=== PATIENT | female | born 1955 | race Caucasian/White ===

== ENCOUNTER → 2016-09-30 | Outpatient (CLI) | payer OTHER ==
--- NOTE | 2016-09-30 17:30 | MA ---
Screening Digital Mammogram With iCAD Analysis Clinical Indications: Routine screening. The patient has had benign left breast biopsies. Technique: Standard cephalocaudal and mediolateral oblique projections were obtained. The examination was processed by the iCAD computer-aided detection system. Comparison: July 2015, July 2014, July 2013, July 2012, June 2012, June 2011, O ctober 2009, May 2009. Breast density: Type C; Heterogeneously dense. Findings: CAD was reviewed. There is a possible developing nodular asymmetry noted in the upper poste rior left breast on the oblique views. No suspicious microcalcifications are identified. The heteroge neous glandular pattern of the right breast is stable. Impression: Possible developing left breast asymmetry requires further evaluation. BI-RADS 0. Recommendation: Spot compression assessment of the left breast with ultrasound suggested if the abnor mality persists on diagnostic evaluation. [facility] will send a result letter to the patient. Dense breast parenchyma diminishes mammographic sensitivity. Negative mammography should not preclude additional workup of a clinically suspicious finding. The patient's information is entered into a reminder system with a target due date for her next mammo gram.
== END ==
LOC: BMCIMAGING 14:24
DX: Z12.31 Encounter for screening mammogram for malignant neoplasm of breast (principal); R92.8 Other abnormal and inconclusive findings on diagnostic imaging of breast
CPT/HCPCS: G0202

== ENCOUNTER → 2016-10-13 | Outpatient (CLI) | payer OTHER ==
--- NOTE | 2016-10-13 13:57 | MA ---
Left Unilateral Digital Diagnostic Mammogram History: Asymmetry on screening mammograms. Comparison: Mammograms through January 13, 2008. Technique: Spot compression MLO and true lateral views. Findings: Additional views demonstrate no residual asymmetry or architectural distortion. Breast pare nchyma in the area of interest appears stable since 2007, allowing for transition from analog to digi dior technique. Impression: BI-RADS 1: Negative. The finding on screening mammograms was likely related to overlappi ng fibroglandular tissue. Recommendations: Routine mammogram in one year. Findings and recommendations were given to the jarad kim at the time of the study. [facility] will send a result letter to the patient.
== END ==
LOC: BMCIMAGING 13:15
PROVIDERS: ATTEND Obstetrics & Gynecology Gynecology
DX: Z12.39 Encounter for other screening for malignant neoplasm of breast (principal); R92.2 Inconclusive mammogram
CPT/HCPCS: G0206

== ENCOUNTER → 2017-12-08 | Outpatient (CLI) | payer OTHER | LOC: FIMAGING 13:08 | PROVIDERS: ATTEND Obstetrics & Gynecology Gynecology | DX: Z12.31 Encounter for screening mammogram for malignant neoplasm of breast (principal) ==

== ENCOUNTER → 2018-12-16 | Outpatient (CLI) | payer OTHER | LOC: FIMAGING 08:44 | PROVIDERS: ATTEND Obstetrics & Gynecology Gynecology | DX: Z12.31 Encounter for screening mammogram for malignant neoplasm of breast (principal) ==